=== PATIENT | female | born 1935 | race Caucasian/White ===

== ENCOUNTER 2017-05-22 11:27 | Emergency (ER) | payer OTHER, BC ==
[~2017-05-22] VITALS: Ht 165.1 cm; Wt 77.5 kg
[~2017-05-22 11:27] MED LIST: ARICEPT5 MG PO; ASPIR-LOW81 MG PO; ASPIR-TRIN325 M1 PO; ASPIRIN EC325 MG PO; ASPIRIN325 MG PO; CALTRATE 6001 TABLET PO; CENTRUM SILVER1 EAC3 PO; CITRACAL PLUS1 EAC1 PO; COLACE100 MG PO; DILAUDID2 MG PO; Ecotrin PO; HEARTBURN RELI150 M1 PO; HEARTBURN RELIE75 MG PO; LEVAQUIN500 MG PO; LEVOTHYROXINE50 MCG PO; LIDOCAINE700 MG TD; LIPITOR40 MG PO; LISINOPRIL2.5 MG PO; LOPRESSOR25 MG PO; Levothyroxine Sodium PO; METAMUCIL0.52 GM PO; METOPROLOL TART25 MG PO; NEXIUM40 MG PO; NITROGLYCERIN0.4 MG SL; NITROQUICK0.4 MG SL; Nitrostat,NitroQuick SL; PLAVIX75 MG PO; PREDNISONE50 MG PO; RANITIDINE HCL150 M1 PO; Ranitidine HCl PO; SIMVASTATIN80 M1 PO; SYNTHROID50 MCG PO; TOPROL XL6.25 MG PO; TYLENOL REGULA325 MG PO; URIBEL CAPSULE1 EACH PO; VITAMIN D1000 INTUN PO; VITAMIN D32000 UNI1 PO; VOLTAREN 1% GE100 GM TP; ZESTRIL,PRINIV2.5 MG PO; ZESTRIL2.5 MG PO; Zestril,Prinivil PO; Zocor PO
[2017-05-22 12:18] LABS: EOSINOPHIL (%) 2.8 % (0-5); EOSINOPHIL COUNT 0.2 K/uL (0-0.3); HEMATOCRIT 37.9 % (36.0-46.0); IMMATURE GRANULOCYTE (%) 0.6 % (0.0-0.7); INSTRUMENT ABS NEUTROPHIL CT 5.8 K/uL; LYMPHOCYTE COUNT 0.5 K/uL (1.0-2.8); MCH 29.7 PG (29.0-34.0); MCHC 32.7 G/DL (30.0-36.0); MCV 90.7 FL (83-99); MEAN PLAT.VOLUME 11.5 uM^3 (9.5-12.4); MONOCYTE (%) 9.3 % (3-12); MONOCYTE COUNT 0.7 K/uL (0-0.8); NEUTROPHIL (%) 79.8 % (45-76); NEUTROPHIL COUNT 5.8 K/uL (1.8-6.4); PLATELET COUNT 146 K/uL (156-360); RBC DIS.WIDTH-CV 13.2 % (11.8-14.6); RED BLOOD COUNT 4.18 M/uL (3.80-5.20); WHITE BLOOD COUNT 7.2 K/uL (4.1-10.2)
[2017-05-22 12:29] LABS: CHLORIDE 103 mEq/L (99-109); POTASSIUM 4.3 mEq/L (3.7-5.4); SODIUM 137 mEq/L (136-147)
[2017-05-22 12:30] LABS: GLUCOSE 99 mg/dL (70-99)
[2017-05-22 12:32] LABS: ANION GAP 8 MEQ/L (2-14)
[2017-05-22 12:34] LABS: GFR ESTIMATE (CALCULATED) > 59 mL/min/
[2017-05-22 12:35] LABS: UREA NITROGEN (BUN) 18 mg/dL (9-23)
[2017-05-22 12:38] LABS: TROP-I INTERPRETATION NEGATIVE; TROPONIN-I < 0.01 ng/mL (0.0-0.30)
[2017-05-22] MEDS ORDERED: PERCOCET 5/31 TABLET PO (13:35)
[2017-05-22 13:55] VITALS: BP 117/80
== END 2017-05-22 13:55 | disposition home or self-care (01) ==
LOC: EME 11:27
PROVIDERS: Emergency Medicine
DX: S22.41XA Multiple fractures of ribs, right side, initial encounter for closed fracture (principal); W18.30XA Fall on same level, unspecified, initial encounter; K21.9 Gastro-esophageal reflux disease without esophagitis; I10 Essential (primary) hypertension; E78.5 Hyperlipidemia, unspecified; E03.9 Hypothyroidism, unspecified; F03.90 Unspecified dementia, unspecified severity, without behavioral disturbance, psychotic disturbance, mood disturbance, and anxiety; I25.2 Old myocardial infarction; Z95.5 Presence of coronary angioplasty implant and graft; Z87.891 Personal history of nicotine dependence; Z90.710 Acquired absence of both cervix and uterus; Z90.49 Acquired absence of other specified parts of digestive tract; Z88.5 Allergy status to narcotic agent; Z88.1 Allergy status to other antibiotic agents; Z88.0 Allergy status to penicillin
CPT/HCPCS: 71101; 80048; 84484; 85025; 93005; 99281; 99284; J3010

== ENCOUNTER 2017-05-26 17:13 | Inpatient (IN) | payer OTHER, BC ==
[~2017-05-26] VITALS: Ht 165.1 cm; Wt 76.8 kg
[~2017-05-26 17:13] MED LIST changes: +ARICEPT10 MG PO; -ARICEPT5 MG PO; +PERCOCET 5/31 TABLET PO; -VOLTAREN 1% GE100 GM TP
[2017-05-26 18:01] LABS: BASOPHIL (%) 0.2 % (0-1); EOSINOPHIL COUNT 0.4 K/uL (0-0.3); HEMATOCRIT 40.9 % (36.0-46.0); HEMOGLOBIN 13.7 G/DL (11.9-15.5); IMMATURE GRANULOCYTE (%) 0.4 % (0.0-0.7); LYMPHOCYTE COUNT 0.8 K/uL (1.0-2.8); MCH 30.2 PG (29.0-34.0); MCHC 33.5 G/DL (30.0-36.0); MCV 90.3 FL (83-99); MONOCYTE (%) 12.4 % (3-12); MONOCYTE COUNT 1.1 K/uL (0-0.8); NEUTROPHIL COUNT 6.7 K/uL (1.8-6.4); PLATELET COUNT 163 K/uL (156-360); RBC DIS.WIDTH-CV 13.2 % (11.8-14.6); RBC DIS.WIDTH-SD 43.9 % (39-53); RED BLOOD COUNT 4.53 M/uL (3.80-5.20)
[2017-05-26 18:09] LABS: CHLORIDE 99 mEq/L (99-109); INTER. NORMALIZED RATIO 1.1
[2017-05-26 18:10] LABS: POTASSIUM 4.4 mEq/L (3.7-5.4); SODIUM 135 mEq/L (136-147)
[2017-05-26 18:11] LABS: GLUCOSE 107 mg/dL (70-99)
[2017-05-26 18:12] LABS: PTT 26.7 SEC (25-37)
[2017-05-26 18:15] LABS: CREATININE 0.8 mg/dL (0.6-1.3); GFR ESTIMATE (CALCULATED) > 59 mL/min/
[2017-05-26 18:16] LABS: UREA NITROGEN (BUN) 19 mg/dL (9-23)
[2017-05-26 18:21] LABS: TROP-I INTERPRETATION NEGATIVE; TROPONIN-I < 0.01 ng/mL (0.0-0.30)
[2017-05-26] MEDS ORDERED: TRAMADOL HCL50 MG PO (19:42)
[2017-05-26] MEDS ORDERED: MELOXICAM7.5 MG PO (19:42)
[2017-05-26] MEDS ORDERED: NAMENDA5 MG PO (19:42)
[2017-05-26] MEDS ORDERED: MIRALAX255 GM PO (19:42)
[2017-05-26] MEDS ORDERED: PROLIA60 MG/1 ML SC (19:42)
[2017-05-26] MEDS ORDERED: ZOLOFT50 MG PO (19:42)
[2017-05-26] MEDS ORDERED: VOLTAREN 1% GE100 GM TP (19:43)
[2017-05-27 00:10] VITALS: BP 141/80
[2017-05-27 03:50] VITALS: BP 131/72
[2017-05-27 06:11] LABS: PTT 95.5 SEC (25-37)
[2017-05-27 06:12] LABS: HEMATOCRIT 38.5 % (36.0-46.0); HEMOGLOBIN 12.7 G/DL (11.9-15.5); MCH 29.7 PG (29.0-34.0); MCV 90.2 FL (83-99); PLATELET COUNT 160 K/uL (156-360); RBC DIS.WIDTH-CV 13.2 % (11.8-14.6); RBC DIS.WIDTH-SD 43.2 % (39-53); RED BLOOD COUNT 4.27 M/uL (3.80-5.20); WHITE BLOOD COUNT 8.1 K/uL (4.1-10.2)
[2017-05-27 07:19] LABS: ALBUMIN 3.2 G/DL (3.2-4.8); ALKALINE PHOSPHATASE 58 IU/L (3-129); ALT (GPT) 18 IU/L (3-49); AST (GOT) 24 IU/L (2-34); CHLORIDE 103 MEQ/L (99-109); CREATININE 0.8 MG/DL (0.6-1.3); GFR ESTIMATE (CALCULATED) > 59 mL/min/; GLUCOSE 111 mg/dL (70-99); POTASSIUM 4.2 MEQ/L (3.7-5.4); SODIUM 137 MEQ/L (136-147); TOTAL BILIRUBIN 0.7 MG/DL (0.0-1.0); TOTAL PROTEIN 5.5 G/DL (6.4-8.3); UREA NITROGEN (BUN) 15 mg/dL (9-23)
[2017-05-27 07:29] VITALS: BP 132/76
[2017-05-27 08:25] LABS: INTER. NORMALIZED RATIO 1.2
[2017-05-27 11:05] VITALS: BP 130/78
[2017-05-27 15:20] VITALS: BP 125/69
[2017-05-27 19:38] VITALS: BP 140/73
[2017-05-28 00:19] VITALS: BP 153/74
[2017-05-28 03:49] VITALS: BP 141/71
[2017-05-28 06:01] LABS: BASOPHIL (%) 0.4 % (0-1); EOSINOPHIL COUNT 0.3 K/uL (0-0.3); HEMATOCRIT 36.6 % (36.0-46.0); HEMOGLOBIN 12.2 G/DL (11.9-15.5); IMMATURE GRANULOCYTE (%) 0.4 % (0.0-0.7); LYMPHOCYTE (%) 9.7 % (15-42); LYMPHOCYTE COUNT 0.7 K/uL (1.0-2.8); MCH 29.9 PG (29.0-34.0); MCHC 33.3 G/DL (30.0-36.0); MCV 89.7 FL (83-99); MONOCYTE (%) 11.2 % (3-12); MONOCYTE COUNT 0.8 K/uL (0-0.8); NEUTROPHIL (%) 74.3 % (45-76); NEUTROPHIL COUNT 5.6 K/uL (1.8-6.4); PLATELET COUNT 160 K/uL (156-360); RBC DIS.WIDTH-CV 13.1 % (11.8-14.6); RBC DIS.WIDTH-SD 43.1 % (39-53); RED BLOOD COUNT 4.08 M/uL (3.80-5.20); WHITE BLOOD COUNT 7.5 K/uL (4.1-10.2)
[2017-05-28 06:12] LABS: INTER. NORMALIZED RATIO 1.4
[2017-05-28 06:15] LABS: PTT 62.7 SEC (25-37)
[2017-05-28 06:39] LABS: CHLORIDE 103 MEQ/L (99-109); CREATININE 0.8 MG/DL (0.6-1.3); GFR ESTIMATE (CALCULATED) > 59 mL/min/; GLUCOSE 104 mg/dL (70-99); POTASSIUM 3.9 MEQ/L (3.7-5.4); SODIUM 138 MEQ/L (136-147); UREA NITROGEN (BUN) 14 mg/dL (9-23)
[2017-05-28 07:36] VITALS: BP 143/78
[2017-05-28 11:55] VITALS: BP 143/78
[2017-05-28 15:21] VITALS: BP 148/72
[2017-05-28 20:04] VITALS: BP 119/69
[2017-05-29 01:16] VITALS: BP 142/83
[2017-05-29 06:34] LABS: BASOPHIL (%) 0.7 % (0-1); BASOPHIL COUNT 0.1 K/uL (0-0.1); EOSINOPHIL (%) 7.6 % (0-5); EOSINOPHIL COUNT 0.6 K/uL (0-0.3); HEMOGLOBIN 12.6 G/DL (11.9-15.5); IMMATURE GRANULOCYTE (%) 0.3 % (0.0-0.7); LYMPHOCYTE (%) 17.4 % (15-42); LYMPHOCYTE COUNT 1.3 K/uL (1.0-2.8); MCH 29.1 PG (29.0-34.0); MCHC 32.3 G/DL (30.0-36.0); MCV 90.1 FL (83-99); MONOCYTE (%) 11.5 % (3-12); MONOCYTE COUNT 0.9 K/uL (0-0.8); NEUTROPHIL (%) 62.5 % (45-76); NEUTROPHIL COUNT 4.7 K/uL (1.8-6.4); PLATELET COUNT 174 K/uL (156-360); RBC DIS.WIDTH-CV 12.9 % (11.8-14.6); RBC DIS.WIDTH-SD 43.3 % (39-53); RED BLOOD COUNT 4.33 M/uL (3.80-5.20); WHITE BLOOD COUNT 7.5 K/uL (4.1-10.2)
[2017-05-29 06:40] LABS: INTER. NORMALIZED RATIO 1.7
[2017-05-29 06:43] LABS: PTT 78.9 SEC (25-37)
[2017-05-29 07:16] LABS: CHLORIDE 104 MEQ/L (99-109); CREATININE 0.8 MG/DL (0.6-1.3); GFR ESTIMATE (CALCULATED) > 59 mL/min/; GLUCOSE 94 mg/dL (70-99); POTASSIUM 3.9 MEQ/L (3.7-5.4); SODIUM 138 MEQ/L (136-147); UREA NITROGEN (BUN) 13 mg/dL (9-23)
[2017-05-29 08:20] VITALS: BP 141/76
[2017-05-29 16:00] VITALS: BP 139/77
[2017-05-29 23:46] VITALS: BP 145/71
[2017-05-30 06:04] LABS: HEMATOCRIT 39.2 % (36.0-46.0); HEMOGLOBIN 13.1 G/DL (11.9-15.5); MCHC 33.4 G/DL (30.0-36.0); MCV 89.7 FL (83-99); PLATELET COUNT 185 K/uL (156-360); RBC DIS.WIDTH-CV 12.9 % (11.8-14.6); RBC DIS.WIDTH-SD 42.5 % (39-53); RED BLOOD COUNT 4.37 M/uL (3.80-5.20); WHITE BLOOD COUNT 7.6 K/uL (4.1-10.2)
[2017-05-30 06:09] LABS: INTER. NORMALIZED RATIO 2.1
[2017-05-30 06:12] LABS: PTT 86.2 SEC (25-37)
[2017-05-30 15:00] VITALS: BP 134/72
[2017-05-30 23:42] VITALS: BP 125/70
[2017-05-31 06:55] VITALS: BP 121/76
[2017-05-31 16:00] VITALS: BP 132/66
[2017-06-01] VITALS: BP 145/82
[2017-06-01 06:55] LABS: HEMATOCRIT 39.9 % (36.0-46.0); HEMOGLOBIN 13.2 G/DL (11.9-15.5); MCH 29.6 PG (29.0-34.0); MCHC 33.1 G/DL (30.0-36.0); MCV 89.5 FL (83-99); PLATELET COUNT 184 K/uL (156-360); RBC DIS.WIDTH-CV 13.2 % (11.8-14.6); RBC DIS.WIDTH-SD 43.7 % (39-53); RED BLOOD COUNT 4.46 M/uL (3.80-5.20); WHITE BLOOD COUNT 7.4 K/uL (4.1-10.2)
[2017-06-01 07:08] LABS: INTER. NORMALIZED RATIO 1.6
[2017-06-01 07:42] VITALS: BP 125/74
[2017-06-01] MEDS ORDERED: TRAMADOL HCL50 MG PO (09:00)
== END 2017-06-01 12:09 | DRG 175 ==
LOC: EME 17:13 → 2EAST 22:07 → EDOF 22:07 → ENRESERV 22:09 → 2EAST 05-27 00:06
PROVIDERS: Emergency Medicine; Internal Medicine; Student in an Organized Health Care Education/Training Program
DX: I26.99 Other pulmonary embolism without acute cor pulmonale (principal); J69.0 Pneumonitis due to inhalation of food and vomit; J96.01 Acute respiratory failure with hypoxia; S22.41XD Multiple fractures of ribs, right side, subsequent encounter for fracture with routine healing; G30.9 Alzheimer's disease, unspecified; F02.81 Dementia in other diseases classified elsewhere, unspecified severity, with behavioral disturbance; J98.11 Atelectasis; I10 Essential (primary) hypertension; I25.119 Atherosclerotic heart disease of native coronary artery with unspecified angina pectoris; E78.2 Mixed hyperlipidemia; K21.9 Gastro-esophageal reflux disease without esophagitis; E03.9 Hypothyroidism, unspecified; F32.9 Major depressive disorder, single episode, unspecified; I25.2 Old myocardial infarction; Z95.5 Presence of coronary angioplasty implant and graft; Z96.651 Presence of right artificial knee joint; Z90.710 Acquired absence of both cervix and uterus; Z87.891 Personal history of nicotine dependence; Z82.49 Family history of ischemic heart disease and other diseases of the circulatory system
CPT/HCPCS: 71010; 71020; 71275; 80048; 80053; 84484; 85025; 85027; 85610; 85730; 92610 GN; 93005; 93970; 94799; 99202; 99281; 99285; J3010; J7030